=== PATIENT | male | born 1970 | race Caucasian/White ===

== ENCOUNTER 2023-05-04 18:32 | Emergency (ER) | payer MEDICAID, OTHER ==
[~2023-05-04] VITALS: Ht 165.1 cm; Wt 99.8 kg
[2023-05-04 19:15] VITALS: BP 193/109; PULSE 110; RESP 20; TEMP 98; O2SAT 96
== END 2023-05-05 01:00 | disposition left against medical advice (07) ==
LOC: MED 18:32
DX: R51.9 Headache, unspecified (principal); M25.562 Pain in left knee; Z53.21 Procedure and treatment not carried out due to patient leaving prior to being seen by health care provider
CPT/HCPCS: 99281

== ENCOUNTER 2023-05-08 10:25 | Emergency (ER) | payer OTHER ==
[~2023-05-08] VITALS: Ht 160 cm; Wt 72.1 kg
[2023-05-08 10:29] VITALS: BP 166/98; PULSE 107; RESP 16; TEMP 98; O2SAT 100
[2023-05-08 11:09] LABS: BASOPHILS % (AUTO) 0.5 % (0.0-2.0); EOSINOPHILS # (AUTO) 0.2 K/uL (0-0.4); EOSINOPHILS % (AUTO) 1.8 % (0.0-4.0); HEMATOCRIT 45.7 % (36-52); HEMOGLOBIN 14.9 g/dL (12.0-18.0); LYMPHOCYTES # (AUTO) 2.3 K/uL (2.0-11.5); LYMPHOCYTES % (AUTO) 27.4 % (20.5-51.1); MEAN CORPUSCULAR HEMOGLOBIN 27 pg (27-31); MEAN CORPUSCULAR HGB CONC 33 g/dL (33-37); MONOCYTES # (AUTO) 0.9 K/uL (0.8-1.0); MONOCYTES % (AUTO) 10.4 % (1.7-9.3); NEUTROPHILS % (AUTO) 59.9 % (42.2-75.2); PLATELET COUNT (AUTO) 265 K/uL (140-450); RED BLOOD CELL COUNT(AUTO) 5.51 MIL/uL (4.20-6.10); RED CELL DISTRIBUTION WIDTH 16.1 % (11.6-13.7); WHITE BLOOD COUNT (AUTO) 8.4 K/uL (4.8-10.8)
[2023-05-08 11:28] LABS: ANION GAP 12.4 (8-16); CALCIUM 8.8 mg/dL (8.5-10.1); POTASSIUM 3.4 mmol/L (3.5-5.1)
[2023-05-08 11:29] LABS: INR 1.18 (0.8-1.2); PARTIAL THROMBOPLASTIN TIME 26.8 secs (22-35.6); PROTHROMBIN TIME 12.3 secs (10.8-13.4)
[2023-05-08] MEDS ORDERED: levETIRAcetam 1,000 MG in NACL 0.9% 100 ML IV ONE (12:15)
[2023-05-08] MEDS ORDERED: levETIRAcetam 100 MG/ML VIAL IV ONE ×2 (12:33)
[2023-05-08 13:30] VITALS: BP 166/98; PULSE 97; RESP 16; TEMP 98; O2SAT 99
== END 2023-05-08 13:30 | disposition short-term general hospital (02) ==
LOC: MED 10:25
DX: G06.0 Intracranial abscess and granuloma (principal); M25.562 Pain in left knee; M54.2 Cervicalgia; Z79.899 Other long term (current) drug therapy
CPT/HCPCS: 36415; 70450; 71045; 72125; 80048; 82948; 83880; 84484; 85025; 85379; 85610; 85730; 93005; 96365; 99291; J1953; Q0092